=== PATIENT | female | born 1940 | race Caucasian/White ===

== ENCOUNTER 2017-10-29 14:21 | Outpatient (CLI) | payer MEDICARE, OTHER | END 2017-10-29 14:22 | disposition home or self-care (01) | LOC: BICRAD 14:21 | PROVIDERS: ATTEND Internal Medicine Gastroenterology | DX: R05 Cough (principal); K21.9 Gastro-esophageal reflux disease without esophagitis | CPT/HCPCS: 71046 ==

== ENCOUNTER 2018-06-06 10:34 | Outpatient (CLI) | payer MEDICARE, OTHER ==
--- NOTE | 2018-06-06 15:30 | NM ---
VENTILATION PERFUSION STUDY 06/06/18 HISTORY: Shortness of breath. RADIOPHARMACEUTICAL: 6.4 millicuries technetium 99m labeled MAA, IV. FINDINGS: The patient was unable to take a deep breath in to perform the ventilation portion of the study. Thi s was attempted on two separate occasions without success. As the result, this is a perfusion only ex amination. There is mild heterogeneous uptake of radiotracer seen throughout the lungs bilaterally. There is que stion of a very small subsegmental defect seen within the anterior aspect of the left lung apex which may represent a small subsegmental defect. However, no additional segmental or subsegmental perfusio n defects are seen. Again ventilation study was not performed to evaluate for a ventilation perfusion mismatch. There is overall normal perfusion gradient present. IMPRESSION: Low probability for pulmonary embolus. POS: [facility]
--- NOTE | 2018-06-06 15:35 | RAD ---
2 VIEWS CHEST: Date: 06/06/18 PROVIDED CLINICAL HISTORY: : Shortness of breath. FINDINGS: Comparison with 10/29/17. Cardiac and mediastinal silhouette is within normal limits. No focal consolidation, pleural fluid, or pneumothorax apparent. IMPRESSION: No evidence for an acute cardiopulmonary process. POS: [facility]
== END 2018-06-06 10:35 | disposition home or self-care (01) ==
LOC: NM 10:34
PROVIDERS: ATTEND Internal Medicine Cardiovascular Disease
DX: R06.02 Shortness of breath (principal)
CPT/HCPCS: 71046; 78582; A9540; A9558